=== PATIENT | female | born 1970 | race African-American/Black ===

== ENCOUNTER 2018-10-01 02:21 | Inpatient (IN) | payer OTHER, MEDICAID ==
[2018-10-01] MEDS: SOD CHLORIDE 0.9% 1,000 ML IV ×3 (02:45→19:24)
[2018-10-01] MEDS: KETOROLAC 30 MG INJ IV ×2 (02:45→20:20)
[2018-10-01] MEDS: ONDANSETRON 4 MG INJ IV (02:45)
[2018-10-01] MEDS: HYDROmorphONE 0.5 MG/0.5 ML SYG IV (02:45)
[2018-10-01 02:47] LABS: ADD MAN DIFF? NO
[2018-10-01 02:56] LABS: WHITE BLOOD COUNT 8.5 10^3/ul (4.8-10.8)
[2018-10-01 02:56] LABS: BASOPHILS % 0.1 % (0.0-2.0); EOSINOPHILS % 0.5 % (0.0-7.0); HEMATOCRIT 39.5 % (37.0-47.0); HEMOGLOBIN 13.2 g/dl (12.0-16.0); LYMPHOCYTES % 12.3 % (15.0-51.0); MEAN CORPUSCULAR HEMOGLOBIN 29.6 pg (29.0-33.0); MEAN CORPUSCULAR HGB CONC 33.4 g/dl (32.0-37.0); MEAN CORPUSCULAR VOLUME 88.6 fl (82.0-101.0); MEAN PLATELET VOLUME 10.8 fl (7.4-10.4); MONOCYTE # 0.6 10^3/ul (0.3-0.9); MONOCYTES % 6.5 % (0.0-11.0); NEUTROPHIL # 6.8 10^3/ul (1.6-7.5); NEUTROPHILS % 80.4 % (39.0-77.0); PLATELET COUNT 257 10^3/UL (140-415); RED BLOOD COUNT 4.46 10^6/ul (4.20-5.40); RED CELL DISTRIBUTION WIDTH 13.6 % (11.5-14.5)
[2018-10-01 03:10] LABS: ALANINE AMINOTRANSFERASE 20 IU/L (13-69); ALBUMIN 4.2 g/dl (3.3-4.9); ALBUMIN/GLOBULIN RATIO 1.27; ALKALINE PHOSPHATASE 121 IU/L (42-121); ANION GAP 11 (5-13); ASPARTATE AMINO TRANSFERASE 26 IU/L (15-46); BILIRUBIN,INDIRECT 0.7 mg/dl (0-1.1); BILIRUBIN,TOTAL 0.7 mg/dl (0.2-1.3); BLOOD UREA NITROGEN 13 mg/dl (7-20); CALCIUM 10.3 mg/dl (8.4-10.2); CARBON DIOXIDE 24 mmol/L (21-31); CHLORIDE 107 mmol/L (97-110); CREATININE 1.35 mg/dl (0.44-1.00); Estimated GFR 51 mL/min (>60); GLUCOSE 123 mg/dl (70-220); LIPASE 98 U/L (23-300); POTASSIUM 3.9 mmol/L (3.5-5.1); SODIUM 142 mmol/L (135-144); TOTAL PROTEIN 7.5 g/dl (6.1-8.1)
[2018-10-01 03:22] LABS: TROPONIN-I < 0.012 ng/ml (0.000-0.120)
[2018-10-01 04:16] LABS: ADD UMIC YES; UR ASCORBIC ACID NEGATIVE (NEGATIVE); UR BACTERIA FEW /HPF (NONE SEEN); UR BILIRUBIN (Dip) NEGATIVE (NEGATIVE); UR BLOOD (Dip) NEGATIVE (NEGATIVE); UR CALCIUM OXALATE CRYSTAL FEW /HPF (NONE SEEN); UR CLARITY CLOUDY (CLEAR); UR COLOR YELLOW (YELLOW); UR GLUCOSE (Dip) NEGATIVE (NEGATIVE); UR KETONES (Dip) TRACE mg/dL (NEGATIVE); UR LEUKOCYTE ESTERASE (Dip) NEGATIVE Leu/ul (NEGATIVE); UR MUCUS FEW /HPF (NONE SEEN); UR NITRITE (Dip) NEGATIVE (NEGATIVE); UR RBC 3 /HPF (0-5); UR SPECIFIC GRAVITY (Dip) 1.021 (1.003-1.030); UR SQUAMOUS EPITHELIAL CELL MANY /HPF (FEW); UR TOTAL PROTEIN (Dip) NEGATIVE (NEGATIVE); UR UROBILINOGEN (Dip) NEGATIVE (NEGATIVE); UR WBC 8 /HPF (0-5)
[2018-10-01] MEDS ORDERED: NACL 0.9% 3 ML SYG IV (06:30)
[2018-10-01] MEDS ORDERED: ONDANSETRON 4 MG INJ IV (06:30)
[2018-10-01] MEDS ORDERED: ALBUTEROL/IPRATROPIUM (NEB) 3 ML AMP HHN (06:30)
[2018-10-01] MEDS ORDERED: ACETAMINOPHEN 325 MG TAB PO (06:30)
[2018-10-01] MEDS ORDERED: HYDROCODONE/APAP (5/325) TAB PO ×2 (06:30)
[2018-10-01] MEDS: TAMSULOSIN (SR) 0.4 MG CAP PO (07:30)
[2018-10-01] MEDS: morphine 4 MG/ML VIAL IV (07:53)
[2018-10-01] MEDS: CEFTRIAXONE 1 GM/50 ML (PMX) 50 ML IVPB (09:28)
[2018-10-01 12:57] LABS: BARBITURATES Negative (NEGATIVE); CANNABINOIDS Negative (NEGATIVE)
[2018-10-01 13:12] LABS: AMPHETAMINE/METHAMPHETAMINE POSITIVE (NEGATIVE); BENZODIAZEPINES Positive (NEGATIVE); COCAINE Positive (NEGATIVE); OPIATES Positive (NEGATIVE)
[2018-10-01] MEDS: PANTOPRAZOLE (EC) 40 MG TAB PO (17:39)
[2018-10-02] MEDS: SOD CHLORIDE 0.9% 1,000 ML IV ×4 (03:31→20:30)
[2018-10-02 05:16] LABS: ADD MAN DIFF? NO
[2018-10-02 05:18] LABS: WHITE BLOOD COUNT 7.7 10^3/ul (4.8-10.8)
[2018-10-02 05:18] LABS: BASOPHILS % 0.1 % (0.0-2.0); EOSINOPHILS # 0.1 10^3/ul (0.0-0.5); EOSINOPHILS % 0.9 % (0.0-7.0); HEMATOCRIT 37.5 % (37.0-47.0); HEMOGLOBIN 12.6 g/dl (12.0-16.0); LYMPHOCYTES # 1.7 10^3/ul (0.8-2.9); LYMPHOCYTES % 22.3 % (15.0-51.0); MEAN CORPUSCULAR HEMOGLOBIN 29.2 pg (29.0-33.0); MEAN CORPUSCULAR HGB CONC 33.6 g/dl (32.0-37.0); MEAN CORPUSCULAR VOLUME 86.8 fl (82.0-101.0); MEAN PLATELET VOLUME 10.9 fl (7.4-10.4); MONOCYTE # 0.6 10^3/ul (0.3-0.9); NEUTROPHIL # 5.2 10^3/ul (1.6-7.5); NEUTROPHILS % 68.4 % (39.0-77.0); PLATELET COUNT 258 10^3/UL (140-415); RED BLOOD COUNT 4.32 10^6/ul (4.20-5.40); RED CELL DISTRIBUTION WIDTH 13.5 % (11.5-14.5)
[2018-10-02 05:48] LABS: ALANINE AMINOTRANSFERASE 17 IU/L (13-69); ALBUMIN 3.6 g/dl (3.3-4.9); ALBUMIN/GLOBULIN RATIO 1.12; ALKALINE PHOSPHATASE 101 IU/L (42-121); ANION GAP 9 (5-13); ASPARTATE AMINO TRANSFERASE 18 IU/L (15-46); BILIRUBIN,INDIRECT 0.5 mg/dl (0-1.1); BILIRUBIN,TOTAL 0.5 mg/dl (0.2-1.3); BLOOD UREA NITROGEN 9 mg/dl (7-20); CALCIUM 9.2 mg/dl (8.4-10.2); CARBON DIOXIDE 25 mmol/L (21-31); CHLORIDE 107 mmol/L (97-110); CREATININE 0.89 mg/dl (0.44-1.00); Estimated GFR > 60 mL/min (>60); GLUCOSE 105 mg/dl (70-220); MAGNESIUM 1.8 mg/dl (1.7-2.5); PHOSPHORUS 3.3 mg/dl (2.5-4.9); POTASSIUM 3.5 mmol/L (3.5-5.1); SODIUM 141 mmol/L (135-144); TOTAL PROTEIN 6.8 g/dl (6.1-8.1)
[2018-10-02 05:59] LABS: HEMOGLOBIN A1C 5.7 % (0-5.9)
[2018-10-02] MEDS: PANTOPRAZOLE (EC) 40 MG TAB PO (06:16)
[2018-10-02] MEDS: TAMSULOSIN (SR) 0.4 MG CAP PO (06:16)
[2018-10-02 06:28] LABS: CHOLESTEROL 189 mg/dl (100-200)
[2018-10-02 06:28] LABS: CHOL/HDL RATIO 2.5 RATIO; HDL CHOLESTEROL 74 mg/dl (34-88); LDL CHOLESTEROL,CALCULATED 99 mg/dl; TRIGLYCERIDES 81 mg/dl (0-149)
[2018-10-02] MEDS: CEFTRIAXONE 1 GM/50 ML (PMX) 50 ML IVPB (09:01)
[2018-10-02] MEDS: KETOROLAC 30 MG INJ IV ×2 (10:04→18:01)
[2018-10-03] MEDS: SOD CHLORIDE 0.9% 1,000 ML IV (04:21)
[2018-10-03] MEDS: KETOROLAC 30 MG INJ IV (05:59)
[2018-10-03] MEDS: PANTOPRAZOLE (EC) 40 MG TAB PO (05:59)
[2018-10-03] MEDS: TAMSULOSIN (SR) 0.4 MG CAP PO (05:59)
[2018-10-03] MEDS: CEFTRIAXONE 1 GM/50 ML (PMX) 50 ML IVPB (09:18)
[2018-10-05 05:42] LABS: URINE DRUG SCREEN RESULT DRUG(S) DETECTED:
== END 2018-10-03 09:40 | disposition left against medical advice (07) | DRG 694 ==
LOC: MS1 06:18 → E/R 02:21 → MS1 05:44
DX: N13.2 Hydronephrosis with renal and ureteral calculous obstruction (principal); N39.0 Urinary tract infection, site not specified; F17.200 Nicotine dependence, unspecified, uncomplicated; I10 Essential (primary) hypertension; F15.10 Other stimulant abuse, uncomplicated; F12.10 Cannabis abuse, uncomplicated; F10.20 Alcohol dependence, uncomplicated; F41.9 Anxiety disorder, unspecified
CPT/HCPCS: 36415; 74018; 74176; 80053; 80061; 80307; 81001; 81025; 83036; 83690; 83735; 84100; 84484; 85025; 87086; 93005; 96374; 96375; 99285-25